=== PATIENT | female | born 1960 | race Caucasian/White ===

== ENCOUNTER 2018-10-24 21:10 | Emergency (ER) | payer BC ==
[2018-10-24 21:23] VITALS: BP 165/85
[2018-10-24] MEDS ORDERED: Tetracaine 0.5% OPTH.SOL 4 ML* 1 DROP BTL RIGHT EYE ONE (21:29)
[2018-10-24] MEDS ORDERED: Fluorescein Sodium TOPICAL* 1 MG TEST STRIP OPHTHALMIC ONE (21:29)
--- NOTE | 2018-10-24 21:29 | UC ---
Eye Complaint HPI - HPI Summary HPI Summary: 58 y/o female presents to the urgent care c/o her right contact slip off to the side when trying to remove them about two hours ago. She has been trying to get it out since that time. Lens is in the lateral side of her eye. Pt states mild irritation, pain is 1/10, no photophobia, TOMLINSON, fever, eye discharge, visual disturbance. Pt states this contact lens are a new prescription that she started to use last week. 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 Negative: Photophobia, Drainage (Purulent), Vision Impairment Bilateral - Risk Factors Penetrating Injury Risk Factor: Negative Globe Rupture Risk Factors: Negative Acute Glaucoma Risk Factors: Negative Optic Artery Occlusion Risk Factors: Negative - Allergies/Home Medications Allergies/Adverse Reactions: Allergies Allergy/AdvReac Type Severity Reaction Status Date / Time No Known Allergies Allergy Verified 10/24/18 21:24 Home Medications: Home Medications Acetaminophen TAB* [Tylenol TAB*] 650 mg PO Q4H PRN 10/24/18 [History Confirmed 10/24/18] Ibuprofen TAB* [Motrin TAB* 400 MG] 400 mg PO Q6H PRN 10/24/18 [History Confirmed 10/24/18] PMH/Surg Hx/FS Hx/Imm Hx Previously Healthy: Yes - Pt denies PMHX - Surgical History Surgical History: None - Family History Known Family History: Positive: Hypertension, Diabetes - Social History Occupation: Employed Full-time Lives: With Family Alcohol Use: Weekly Substance Use Type: None Smoking Status (MU): Never Smoked Tobacco Review of Systems All Other Systems Reviewed And Are Negative: Yes Constitutional: Positive: Negative Skin: Positive: Negative Eyes: Positive: Drainage - clear, Eye Redness - Rt eye lateral side with a anup contact lens ENT: Positive: Negative Respiratory: Positive: Negative Cardiovascular: Positive: Negative Gastrointestinal: Positive: Negative Genitourinary: Positive: Negative Motor: Positive: Negative Neurovascular: Positive: Negative Musculoskeletal: Positive: Negative Neurological: Positive: Negative Psychological: Positive: Negative Is Patient Immunocompromised?: No Physical Exam - Summary Physical Exam Summary: Vital Signs Reviewed: Yes General: Well appearing, well nourished female in no apparent pain distress Eyes: Positive: Conjunctiva Inflamed - Visual acuity: WNL,Visual rey: full to confrontation. PERRLA, EOMI intact w/out limitation or complaint of pain. eyelashes clear. mild tearing and clear drainage observed. Positive anup contact lens in thelateral corner of Rt eye observed No ciliary flush. No chemosis, No photophobia. Normal fundoscopic exam; no proptosis, exophthalmos, nystagmus. ENT: Positive: Normal ENT inspection, Hearing grossly normal, Pharynx normal, Nasal congestion, Nasal drainage - clear, TMs normal - B/L external ear canal clear , TM's WNL. Negative: Tonsillar swelling, Tonsillar exudate Neck: Positive: Supple, Nontender, No Lymphadenopathy Respiratory: Positive: Chest nontender, Lungs clear, Normal breath sounds, No respiratory distress Cardiovascular: Positive: RRR, No Murmur, Pulses Normal, Brisk Capillary Refill Abdomen Description: Positive: Nontender, No Organomegaly, Soft. Negative: CVA Tenderness (R), CVA Tenderness (L) Bowel Sounds: Positive: Present Musculoskeletal: Positive: Strength Intact, ROM Intact, No Edema Neurological Exam: Normal Psychological Exam: Normal Skin Exam: Normal Triage Information Reviewed: Yes Vital Signs: Initial Vital Signs Temp 97.7 F 10/24/18 21: Pulse 95 10/24/18 21:19 Resp 16 10/24/18 21: BP 165/85 10/24/18 21: Pulse Ox 98 10/24/18 21:19 Eye Complaint Course/Dx - Course Course Of Treatment: 58 y/o female presents to the urgent care c/o her right contact slip off to the side when trying to remove them about two hours ago. She has been trying to get it out since that time. Lens is in the lateral side of her eye. Pt states mild irritation, pain is 1/10, no photophobia, TOMLINSON, fever, eye discharge, visual disturbance. Pt states this contact lens are a new prescription that she started to use last week. Hx obtained. Pt w/ lateral side of the RT eye with a anup contact lens on examination. foreing bdy eye removal procedure: 2 drops of Tetracaine optha drops placed on Pts RT eye, then irrigated with saline drops to flush any foreign particles, contat lens removed with forceps, then fluorescein instillation and examination with a UV lamp. No corneal abrasion observed. After procedure Pt felt better. Pt Rx Erythromycin ophthalmic ointment and advised to f/u at [facility] or her opthalmologist for furthe managment.Pt's BP is elevated today advised to decrease salt in diet, monitor BP and f/u with PCP for further management. D/C instructions explained. Pt understood and agreed w/ plan of care. - Differential Dx/Diagnosis Differential Diagnosis/HQI/PQRI: Conjunctivitis, Corneal Abrasion, Foreign Body , Orbital Cellulitis, Uveitis Provider Diagnosis: Foreign body of right eye, Elevated BP without diagnosis of hypertension Discharge - Sign-Out/Discharge Documenting (check all that apply): Patient Departure - d/c home All imaging exams completed and their final reports reviewed: No Studies - Discharge Plan Condition: Stable Disposition: HOME Prescriptions: Erythromycin TOPICAL GEL* [Erythromycin OPTH OINT*] 1 applic TOPICAL TID #1 oint Patient Education Materials: Eye Foreign Body (ED), Low-Sodium Diet (ED) Referrals: James Thibodeaux MD [Primary Care Provider] - 2 Days Omi Ahmadi MD [Medical Doctor] - If Needed Additional Instructions: 1-Please apply ophthalmic ointment in your Rt eye as directed to prevent infection. 2- Contact lens removed, no corneal abrasion observed. If you do not improve or if symptoms worsen please f/u with historic interpreter Dr Ahmadi or your historic interpreter for further evaluation and treatment or change in contact lens 3- Your BP is elevated today. please decrease salt in your diet, monitor BP and if it continues to be elevated please f/u with your PCP for further management. - Billing Disposition and Condition Condition: STABLE Disposition: Home
[2018-10-24] MEDS ORDERED: Eye Irrigation Solution 30 ML BOTTLE ONE (21:34)
[2018-10-24] MEDS ORDERED: Erythromycin OPTH OINT* APPLIC OINT RIGHT EYE ONE (21:49)
[2018-10-24] MEDS ORDERED: Eye Irrigation Solution 30 ML BOTTLE RIGHT EYE ONE (21:56)
== END 2018-10-24 22:04 | disposition home or self-care (01) ==
LOC: UCEAST 21:10
DX: T15.91XA Foreign body on external eye, part unspecified, right eye, initial encounter (principal); R03.0 Elevated blood-pressure reading, without diagnosis of hypertension; X58.XXXA Exposure to other specified factors, initial encounter; Y92.9 Unspecified place or not applicable
CPT/HCPCS: 99212; A9270-GY; G0463